=== PATIENT | female | born 1955 | race Caucasian/White ===

== ENCOUNTER → 2019-09-07 | Outpatient (CLI) | payer MEDICARE ==
[~2019-09-07] MED LIST: AMIT25TA PO; AMOX-291 PO; CELE200C PO; DEXA0.5E2 PO; ERGO500017 PO; FAMC500T4 PO; GABA600T7 PO; IBUP-1223 PO; LACT1CAP35 PO; LEVO50TA5 PO; LEVO750T26 PO; LEVO75TA5 PO; MORP-29 PO; NORE0.3513 PO; NYST15OI2 TP; OXYC-307 PO; PROG100C16 PO; SULF1TAB24 PO; TIZA4TAB2 PO; doxycycline PO; prednisone PO
== END | disposition home or self-care (01) ==
LOC: WOUND 13:29
PROVIDERS: ATTEND Nurse Practitioner Family
DX: L97.821 Non-pressure chronic ulcer of other part of left lower leg limited to breakdown of skin (principal); M86.8X8 Other osteomyelitis, other site; E03.9 Hypothyroidism, unspecified; G89.4 Chronic pain syndrome; F41.9 Anxiety disorder, unspecified; R26.9 Unspecified abnormalities of gait and mobility; M05.60 Rheumatoid arthritis of unspecified site with involvement of other organs and systems; M81.0 Age-related osteoporosis without current pathological fracture; Z79.2 Long term (current) use of antibiotics; Z96.622 Presence of left artificial elbow joint
CPT/HCPCS: 97597; 97598; G0463

== ENCOUNTER → 2019-09-14 | Outpatient (CLI) | payer MEDICARE | END | disposition home or self-care (01) | LOC: WOUND 11:03 | PROVIDERS: ATTEND Nurse Practitioner Family | DX: L98.498 Non-pressure chronic ulcer of skin of other sites with other specified severity (principal); M86.8X8 Other osteomyelitis, other site; E03.9 Hypothyroidism, unspecified; G89.4 Chronic pain syndrome; F41.9 Anxiety disorder, unspecified; R26.9 Unspecified abnormalities of gait and mobility; M05.60 Rheumatoid arthritis of unspecified site with involvement of other organs and systems; M81.0 Age-related osteoporosis without current pathological fracture; Z79.2 Long term (current) use of antibiotics; Z96.622 Presence of left artificial elbow joint | CPT/HCPCS: 97597; 97598 ==

== ENCOUNTER 2019-09-21 13:23 | Outpatient (CLI) | payer MEDICARE | END 2019-09-21 23:59 | disposition home or self-care (01) | LOC: WOUND 13:23 | PROVIDERS: ATTEND Nurse Practitioner Family | DX: S81.802D Unspecified open wound, left lower leg, subsequent encounter (principal); L98.498 Non-pressure chronic ulcer of skin of other sites with other specified severity; M86.8X8 Other osteomyelitis, other site; E03.9 Hypothyroidism, unspecified; G89.4 Chronic pain syndrome; F41.9 Anxiety disorder, unspecified; R26.9 Unspecified abnormalities of gait and mobility; M05.60 Rheumatoid arthritis of unspecified site with involvement of other organs and systems; M81.0 Age-related osteoporosis without current pathological fracture; Z79.2 Long term (current) use of antibiotics; Z96.622 Presence of left artificial elbow joint; Z96.653 Presence of artificial knee joint, bilateral; X58.XXXD Exposure to other specified factors, subsequent encounter | CPT/HCPCS: 97597; 97598 ==

== ENCOUNTER 2019-10-01 10:44 | Outpatient (CLI) | payer MEDICARE | END 2019-10-01 23:59 | disposition home or self-care (01) | LOC: WOUND 10:44 | PROVIDERS: ATTEND Family Medicine | DX: S81.802D Unspecified open wound, left lower leg, subsequent encounter (principal); L89.891 Pressure ulcer of other site, stage 1; L98.498 Non-pressure chronic ulcer of skin of other sites with other specified severity; M05.60 Rheumatoid arthritis of unspecified site with involvement of other organs and systems; M86.18 Other acute osteomyelitis, other site; E03.9 Hypothyroidism, unspecified; M81.0 Age-related osteoporosis without current pathological fracture; G89.4 Chronic pain syndrome; F41.9 Anxiety disorder, unspecified; Z96.653 Presence of artificial knee joint, bilateral; Z96.622 Presence of left artificial elbow joint; X58.XXXD Exposure to other specified factors, subsequent encounter | CPT/HCPCS: 97597; 97598 ==

== ENCOUNTER 2019-10-05 11:23 | Outpatient (CLI) | payer MEDICARE | END 2019-10-05 23:59 | disposition home or self-care (01) | LOC: WOUND 11:23 | PROVIDERS: ATTEND Nurse Practitioner Family | DX: S81.802D Unspecified open wound, left lower leg, subsequent encounter (principal); L98.498 Non-pressure chronic ulcer of skin of other sites with other specified severity; M86.8X8 Other osteomyelitis, other site; E03.9 Hypothyroidism, unspecified; G89.4 Chronic pain syndrome; F41.9 Anxiety disorder, unspecified; R26.9 Unspecified abnormalities of gait and mobility; M05.60 Rheumatoid arthritis of unspecified site with involvement of other organs and systems; M81.0 Age-related osteoporosis without current pathological fracture; Z79.2 Long term (current) use of antibiotics; Z96.622 Presence of left artificial elbow joint; Z96.653 Presence of artificial knee joint, bilateral; X58.XXXD Exposure to other specified factors, subsequent encounter | CPT/HCPCS: 97597; 97598 ==

== ENCOUNTER → 2019-10-12 | Outpatient (CLI) | payer MEDICARE | END | disposition home or self-care (01) | LOC: WOUND 10:56 | PROVIDERS: ATTEND Nurse Practitioner Family | DX: L98.498 Non-pressure chronic ulcer of skin of other sites with other specified severity (principal); S81.802D Unspecified open wound, left lower leg, subsequent encounter; M86.8X8 Other osteomyelitis, other site; E03.9 Hypothyroidism, unspecified; G89.4 Chronic pain syndrome; F41.9 Anxiety disorder, unspecified; R26.9 Unspecified abnormalities of gait and mobility; M05.60 Rheumatoid arthritis of unspecified site with involvement of other organs and systems; M81.0 Age-related osteoporosis without current pathological fracture; Z79.2 Long term (current) use of antibiotics; Z96.622 Presence of left artificial elbow joint; Z96.653 Presence of artificial knee joint, bilateral; X58.XXXD Exposure to other specified factors, subsequent encounter | CPT/HCPCS: 97597; 97598 ==

== ENCOUNTER 2019-10-19 10:34 | Outpatient (CLI) | payer MEDICARE | END 2019-10-19 23:59 | disposition home or self-care (01) | LOC: WOUND 10:34 | PROVIDERS: ATTEND Nurse Practitioner Family | DX: L89.891 Pressure ulcer of other site, stage 1 (principal); L98.498 Non-pressure chronic ulcer of skin of other sites with other specified severity; S81.802D Unspecified open wound, left lower leg, subsequent encounter; M86.8X8 Other osteomyelitis, other site; G89.4 Chronic pain syndrome; E03.9 Hypothyroidism, unspecified; F41.9 Anxiety disorder, unspecified; R26.9 Unspecified abnormalities of gait and mobility; M05.60 Rheumatoid arthritis of unspecified site with involvement of other organs and systems; M81.0 Age-related osteoporosis without current pathological fracture; Z79.2 Long term (current) use of antibiotics; Z96.622 Presence of left artificial elbow joint; Z96.653 Presence of artificial knee joint, bilateral; X58.XXXD Exposure to other specified factors, subsequent encounter | CPT/HCPCS: 97597; 97598 ==

== ENCOUNTER 2019-10-26 12:54 | Outpatient (CLI) | payer MEDICARE | END 2019-10-26 23:59 | disposition home or self-care (01) | LOC: WOUND 12:54 | PROVIDERS: ATTEND Nurse Practitioner Family | DX: L98.498 Non-pressure chronic ulcer of skin of other sites with other specified severity (principal); S81.802D Unspecified open wound, left lower leg, subsequent encounter; L89.891 Pressure ulcer of other site, stage 1; M86.8X8 Other osteomyelitis, other site; E03.9 Hypothyroidism, unspecified; G89.4 Chronic pain syndrome; F41.9 Anxiety disorder, unspecified; R26.9 Unspecified abnormalities of gait and mobility; M05.60 Rheumatoid arthritis of unspecified site with involvement of other organs and systems; M81.0 Age-related osteoporosis without current pathological fracture; Z79.2 Long term (current) use of antibiotics; Z96.622 Presence of left artificial elbow joint; Z96.653 Presence of artificial knee joint, bilateral; X58.XXXD Exposure to other specified factors, subsequent encounter | CPT/HCPCS: 97597; 97598 ==

== ENCOUNTER → 2019-11-02 | Outpatient (CLI) | payer MEDICARE | END | disposition home or self-care (01) | LOC: WOUND 10:55 | PROVIDERS: ATTEND Internal Medicine Infectious Disease | DX: L89.891 Pressure ulcer of other site, stage 1 (principal); S81.802D Unspecified open wound, left lower leg, subsequent encounter; L98.498 Non-pressure chronic ulcer of skin of other sites with other specified severity; E03.9 Hypothyroidism, unspecified; G89.4 Chronic pain syndrome; F41.9 Anxiety disorder, unspecified; R26.9 Unspecified abnormalities of gait and mobility; R64 Cachexia; M05.60 Rheumatoid arthritis of unspecified site with involvement of other organs and systems; M81.0 Age-related osteoporosis without current pathological fracture; E44.0 Moderate protein-calorie malnutrition; M86.18 Other acute osteomyelitis, other site; Z68.1 Body mass index [BMI] 19.9 or less, adult; Z96.622 Presence of left artificial elbow joint; Z96.653 Presence of artificial knee joint, bilateral; X58.XXXD Exposure to other specified factors, subsequent encounter; Z79.2 Long term (current) use of antibiotics | CPT/HCPCS: 97597; 97598 ==

== ENCOUNTER 2019-11-09 11:04 | Outpatient (CLI) | payer MEDICARE | END 2019-11-09 23:59 | disposition home or self-care (01) | LOC: WOUND 11:04 | PROVIDERS: ATTEND Internal Medicine Infectious Disease | DX: L89.891 Pressure ulcer of other site, stage 1 (principal); L98.498 Non-pressure chronic ulcer of skin of other sites with other specified severity; S81.802D Unspecified open wound, left lower leg, subsequent encounter; E03.9 Hypothyroidism, unspecified; G89.4 Chronic pain syndrome; F41.9 Anxiety disorder, unspecified; R26.9 Unspecified abnormalities of gait and mobility; R64 Cachexia; M05.60 Rheumatoid arthritis of unspecified site with involvement of other organs and systems; M81.0 Age-related osteoporosis without current pathological fracture; E44.0 Moderate protein-calorie malnutrition; M86.18 Other acute osteomyelitis, other site; Z68.1 Body mass index [BMI] 19.9 or less, adult; Z96.622 Presence of left artificial elbow joint; Z96.653 Presence of artificial knee joint, bilateral; Z79.2 Long term (current) use of antibiotics; X58.XXXD Exposure to other specified factors, subsequent encounter | CPT/HCPCS: 97597; 97598 ==

== ENCOUNTER → 2019-11-16 | Outpatient (CLI) | payer MEDICARE | END | disposition home or self-care (01) | LOC: WOUND 10:45 | PROVIDERS: ATTEND Nurse Practitioner Family | DX: L89.891 Pressure ulcer of other site, stage 1 (principal); S81.802D Unspecified open wound, left lower leg, subsequent encounter; L98.498 Non-pressure chronic ulcer of skin of other sites with other specified severity; E03.9 Hypothyroidism, unspecified; G89.4 Chronic pain syndrome; F41.9 Anxiety disorder, unspecified; R26.9 Unspecified abnormalities of gait and mobility; R64 Cachexia; M05.60 Rheumatoid arthritis of unspecified site with involvement of other organs and systems; M81.0 Age-related osteoporosis without current pathological fracture; E44.0 Moderate protein-calorie malnutrition; M86.18 Other acute osteomyelitis, other site; Z68.1 Body mass index [BMI] 19.9 or less, adult; Z96.622 Presence of left artificial elbow joint; Z96.653 Presence of artificial knee joint, bilateral; X58.XXXD Exposure to other specified factors, subsequent encounter; Z79.2 Long term (current) use of antibiotics | CPT/HCPCS: 97597; 97598 ==

== ENCOUNTER 2019-11-23 13:19 | Outpatient (CLI) | payer MEDICARE | END 2019-11-23 23:59 | disposition home or self-care (01) | LOC: WOUND 13:19 | PROVIDERS: ATTEND Nurse Practitioner Family | DX: L89.891 Pressure ulcer of other site, stage 1 (principal); S81.802D Unspecified open wound, left lower leg, subsequent encounter; L98.498 Non-pressure chronic ulcer of skin of other sites with other specified severity; E03.9 Hypothyroidism, unspecified; G89.4 Chronic pain syndrome; F41.9 Anxiety disorder, unspecified; R26.9 Unspecified abnormalities of gait and mobility; R64 Cachexia; M05.60 Rheumatoid arthritis of unspecified site with involvement of other organs and systems; M81.0 Age-related osteoporosis without current pathological fracture; E44.0 Moderate protein-calorie malnutrition; M86.18 Other acute osteomyelitis, other site; Z79.2 Long term (current) use of antibiotics; Z68.1 Body mass index [BMI] 19.9 or less, adult; Z96.622 Presence of left artificial elbow joint; Z96.653 Presence of artificial knee joint, bilateral; X58.XXXD Exposure to other specified factors, subsequent encounter | CPT/HCPCS: C5271; Q4166; 15271 ==

== ENCOUNTER → 2019-11-30 | Outpatient (CLI) | payer MEDICARE | END | disposition home or self-care (01) | LOC: WOUND 13:42 | PROVIDERS: ATTEND Nurse Practitioner Family | DX: L89.891 Pressure ulcer of other site, stage 1 (principal); S81.802D Unspecified open wound, left lower leg, subsequent encounter; L98.498 Non-pressure chronic ulcer of skin of other sites with other specified severity; E03.9 Hypothyroidism, unspecified; G89.4 Chronic pain syndrome; F41.9 Anxiety disorder, unspecified; R26.9 Unspecified abnormalities of gait and mobility; R64 Cachexia; M05.60 Rheumatoid arthritis of unspecified site with involvement of other organs and systems; M81.0 Age-related osteoporosis without current pathological fracture; E44.0 Moderate protein-calorie malnutrition; M86.18 Other acute osteomyelitis, other site; Z68.1 Body mass index [BMI] 19.9 or less, adult; Z96.622 Presence of left artificial elbow joint; Z96.653 Presence of artificial knee joint, bilateral; Z79.2 Long term (current) use of antibiotics; X58.XXXD Exposure to other specified factors, subsequent encounter | CPT/HCPCS: C5271; C5272; Q4118; Q4166 ==

== ENCOUNTER → 2019-12-09 | Outpatient (CLI) | payer MEDICARE | END | disposition home or self-care (01) | LOC: WOUND 13:27 | PROVIDERS: ATTEND Podiatrist Foot & Ankle Surgery | DX: L89.891 Pressure ulcer of other site, stage 1 (principal); S81.802D Unspecified open wound, left lower leg, subsequent encounter; L98.498 Non-pressure chronic ulcer of skin of other sites with other specified severity; E03.9 Hypothyroidism, unspecified; G89.4 Chronic pain syndrome; F41.9 Anxiety disorder, unspecified; R26.9 Unspecified abnormalities of gait and mobility; R64 Cachexia; M05.60 Rheumatoid arthritis of unspecified site with involvement of other organs and systems; M81.0 Age-related osteoporosis without current pathological fracture; E44.0 Moderate protein-calorie malnutrition; M86.18 Other acute osteomyelitis, other site; Z68.1 Body mass index [BMI] 19.9 or less, adult; Z96.622 Presence of left artificial elbow joint; Z96.653 Presence of artificial knee joint, bilateral; Z79.2 Long term (current) use of antibiotics; X58.XXXD Exposure to other specified factors, subsequent encounter | CPT/HCPCS: 87070; 87077; 87186; 87205; 97597; 97598 ==

== ENCOUNTER 2019-12-14 13:53 | Outpatient (CLI) | payer MEDICARE | END 2019-12-14 23:59 | disposition home or self-care (01) | LOC: WOUND 13:53 | PROVIDERS: ATTEND Nurse Practitioner Family | DX: L89.891 Pressure ulcer of other site, stage 1 (principal); S81.802D Unspecified open wound, left lower leg, subsequent encounter; L98.498 Non-pressure chronic ulcer of skin of other sites with other specified severity; E03.9 Hypothyroidism, unspecified; G89.4 Chronic pain syndrome; F41.9 Anxiety disorder, unspecified; R26.9 Unspecified abnormalities of gait and mobility; R64 Cachexia; M05.60 Rheumatoid arthritis of unspecified site with involvement of other organs and systems; M81.0 Age-related osteoporosis without current pathological fracture; E44.0 Moderate protein-calorie malnutrition; M86.18 Other acute osteomyelitis, other site; Z68.1 Body mass index [BMI] 19.9 or less, adult; Z96.622 Presence of left artificial elbow joint; Z96.653 Presence of artificial knee joint, bilateral; Z79.2 Long term (current) use of antibiotics; X58.XXXD Exposure to other specified factors, subsequent encounter | CPT/HCPCS: C5271; Q4166 ==

== ENCOUNTER → 2019-12-21 | Outpatient (CLI) | payer MEDICARE | END | disposition home or self-care (01) | LOC: WOUND 12:58 | PROVIDERS: ATTEND Nurse Practitioner Family | DX: L89.891 Pressure ulcer of other site, stage 1 (principal); S81.802D Unspecified open wound, left lower leg, subsequent encounter; L98.498 Non-pressure chronic ulcer of skin of other sites with other specified severity; E03.9 Hypothyroidism, unspecified; G89.4 Chronic pain syndrome; F41.9 Anxiety disorder, unspecified; R26.9 Unspecified abnormalities of gait and mobility; R64 Cachexia; M05.60 Rheumatoid arthritis of unspecified site with involvement of other organs and systems; M81.0 Age-related osteoporosis without current pathological fracture; E44.0 Moderate protein-calorie malnutrition; M86.18 Other acute osteomyelitis, other site; Z68.1 Body mass index [BMI] 19.9 or less, adult; Z96.622 Presence of left artificial elbow joint; Z96.653 Presence of artificial knee joint, bilateral; Z79.2 Long term (current) use of antibiotics; X58.XXXD Exposure to other specified factors, subsequent encounter | CPT/HCPCS: 87070; 87077; 87186; 87205; 97597; 97598 ==

== ENCOUNTER → 2019-12-29 | Outpatient (CLI) | payer MEDICARE | END | disposition home or self-care (01) | LOC: WOUND 12:45 | PROVIDERS: ATTEND Internal Medicine | DX: L89.891 Pressure ulcer of other site, stage 1 (principal); S81.802D Unspecified open wound, left lower leg, subsequent encounter; L98.498 Non-pressure chronic ulcer of skin of other sites with other specified severity; L89.150 Pressure ulcer of sacral region, unstageable; E03.9 Hypothyroidism, unspecified; G89.4 Chronic pain syndrome; F41.9 Anxiety disorder, unspecified; R26.9 Unspecified abnormalities of gait and mobility; R64 Cachexia; M05.60 Rheumatoid arthritis of unspecified site with involvement of other organs and systems; M81.0 Age-related osteoporosis without current pathological fracture; E44.0 Moderate protein-calorie malnutrition; M86.18 Other acute osteomyelitis, other site; Z68.1 Body mass index [BMI] 19.9 or less, adult; Z96.622 Presence of left artificial elbow joint; Z96.653 Presence of artificial knee joint, bilateral; Z79.2 Long term (current) use of antibiotics; X58.XXXD Exposure to other specified factors, subsequent encounter | CPT/HCPCS: 97597; 97598 ==

== ENCOUNTER → 2020-01-05 | Outpatient (CLI) | payer MEDICARE | END | disposition home or self-care (01) | LOC: WOUND 14:29 | PROVIDERS: ATTEND Internal Medicine | DX: L89.893 Pressure ulcer of other site, stage 3 (principal); S81.802D Unspecified open wound, left lower leg, subsequent encounter; L98.498 Non-pressure chronic ulcer of skin of other sites with other specified severity; L89.150 Pressure ulcer of sacral region, unstageable; E03.9 Hypothyroidism, unspecified; G89.4 Chronic pain syndrome; F41.9 Anxiety disorder, unspecified; M86.18 Other acute osteomyelitis, other site; M86.68 Other chronic osteomyelitis, other site; R26.9 Unspecified abnormalities of gait and mobility; R64 Cachexia; M05.60 Rheumatoid arthritis of unspecified site with involvement of other organs and systems; M81.0 Age-related osteoporosis without current pathological fracture; E44.0 Moderate protein-calorie malnutrition; F11.90 Opioid use, unspecified, uncomplicated; Z68.1 Body mass index [BMI] 19.9 or less, adult; Z96.622 Presence of left artificial elbow joint; Z96.653 Presence of artificial knee joint, bilateral; Z79.2 Long term (current) use of antibiotics; X58.XXXD Exposure to other specified factors, subsequent encounter | CPT/HCPCS: 97597; 97598 ==

== ENCOUNTER → 2020-01-12 | Outpatient (CLI) | payer MEDICARE | END | disposition home or self-care (01) | LOC: WOUND 10:24 | PROVIDERS: ATTEND Internal Medicine | DX: L89.893 Pressure ulcer of other site, stage 3 (principal); S81.802D Unspecified open wound, left lower leg, subsequent encounter; L98.498 Non-pressure chronic ulcer of skin of other sites with other specified severity; L89.150 Pressure ulcer of sacral region, unstageable; E03.9 Hypothyroidism, unspecified; G89.4 Chronic pain syndrome; F41.9 Anxiety disorder, unspecified; M86.18 Other acute osteomyelitis, other site; M86.68 Other chronic osteomyelitis, other site; R26.9 Unspecified abnormalities of gait and mobility; R64 Cachexia; M05.60 Rheumatoid arthritis of unspecified site with involvement of other organs and systems; M81.0 Age-related osteoporosis without current pathological fracture; E44.0 Moderate protein-calorie malnutrition; F11.90 Opioid use, unspecified, uncomplicated; Z68.1 Body mass index [BMI] 19.9 or less, adult; Z96.622 Presence of left artificial elbow joint; Z96.653 Presence of artificial knee joint, bilateral; Z79.2 Long term (current) use of antibiotics; X58.XXXD Exposure to other specified factors, subsequent encounter | CPT/HCPCS: 97597; 97598 ==

== ENCOUNTER → 2020-01-19 | Outpatient (CLI) | payer MEDICARE | END | disposition home or self-care (01) | LOC: WOUND 08:19 | PROVIDERS: ATTEND Internal Medicine | DX: L89.893 Pressure ulcer of other site, stage 3 (principal); S81.802D Unspecified open wound, left lower leg, subsequent encounter; L98.498 Non-pressure chronic ulcer of skin of other sites with other specified severity; L89.150 Pressure ulcer of sacral region, unstageable; E03.9 Hypothyroidism, unspecified; G89.4 Chronic pain syndrome; F41.9 Anxiety disorder, unspecified; M86.18 Other acute osteomyelitis, other site; M86.68 Other chronic osteomyelitis, other site; R26.9 Unspecified abnormalities of gait and mobility; R64 Cachexia; M05.60 Rheumatoid arthritis of unspecified site with involvement of other organs and systems; M81.0 Age-related osteoporosis without current pathological fracture; F11.90 Opioid use, unspecified, uncomplicated; E44.0 Moderate protein-calorie malnutrition; Z68.1 Body mass index [BMI] 19.9 or less, adult; Z96.622 Presence of left artificial elbow joint; Z96.653 Presence of artificial knee joint, bilateral; Z79.2 Long term (current) use of antibiotics; X58.XXXD Exposure to other specified factors, subsequent encounter | CPT/HCPCS: 97597; 97598 ==

== ENCOUNTER → 2020-01-26 | Outpatient (CLI) | payer MEDICARE | END | disposition home or self-care (01) | LOC: WOUND 12:48 | PROVIDERS: ATTEND Internal Medicine | DX: L89.893 Pressure ulcer of other site, stage 3 (principal); L89.150 Pressure ulcer of sacral region, unstageable; L98.498 Non-pressure chronic ulcer of skin of other sites with other specified severity; S81.802D Unspecified open wound, left lower leg, subsequent encounter; S50.811A Abrasion of right forearm, initial encounter; E03.9 Hypothyroidism, unspecified; G89.4 Chronic pain syndrome; F41.9 Anxiety disorder, unspecified; M86.18 Other acute osteomyelitis, other site; M86.68 Other chronic osteomyelitis, other site; R26.9 Unspecified abnormalities of gait and mobility; R64 Cachexia; M05.60 Rheumatoid arthritis of unspecified site with involvement of other organs and systems; M81.0 Age-related osteoporosis without current pathological fracture; F11.90 Opioid use, unspecified, uncomplicated; E44.0 Moderate protein-calorie malnutrition; Z68.1 Body mass index [BMI] 19.9 or less, adult; Z96.622 Presence of left artificial elbow joint; Z96.653 Presence of artificial knee joint, bilateral; Z79.2 Long term (current) use of antibiotics; X58.XXXA Exposure to other specified factors, initial encounter; Y93.89 Activity, other specified; Y92.89 Other specified places as the place of occurrence of the external cause; Y99.8 Other external cause status | CPT/HCPCS: 97597; 97598 ==